=== PATIENT | female | born 1980 | race Caucasian/White ===

== ENCOUNTER 2023-12-09 14:43 | Outpatient (CLI) | payer BC, SELFPAY ==
--- NOTE | 2023-12-09 14:44 | US_ITS ---
PROCEDURE: US TRANSVAGINAL CLINICAL INDICATION: abnormal uterine bleeding COMPARISON: No exams were available for comparison FINDINGS: Transvaginal sonographic images of the pelvis were obtained. UTERUS: 8.3cm x 6.3cmx 5.4cm retroverted and retroflexed with a combined endometrial thickness of 14.4mm. The endometrium has a trilaminar appearance with an irregular basalis with increased echogenicity possibly consistent with adenomyosis. There is a 9.3 mm nabothian cyst in the cervix. LEFT OVARY: 1.0cmx 1.0x3.0cm with a volume of 1.4ml. RIGHT OVARY: 3.3cmx 2.5 cmx2.6 cm with a volume of 11ml. There is a follicle in the right ovary measuring 1.6 cm x 2.4 cm x 1.7 cm. Both ovaries are seen and appear normal. Doppler flow to both ovaries are seen. There is no fluid in the cul-de-sac. IMPRESSION: 1. Retroverted, retroflexed uterus normal in shape and size. 2. The endometrium is thickened at 14.4 mm. It has an irregular border at the basalis and has increased echogenicity along the basalis. 3. Both ovaries are seen and appear normal. The right ovary has a 2.4 cm follicle. 4. No fluid in the cul-de-sac. Dictated by: Jay Basurto MD 12/09/2023 16:16 Jay Basurto MD in [facility] 12/09/2023 16:16
== END 2023-12-09 23:59 | disposition home or self-care (01) ==
LOC: RAD 14:44
PROVIDERS: PCP Internal Medicine; Visit Provider Obstetrics & Gynecology
DX: R10.2 Pelvic and perineal pain (principal); N93.9 Abnormal uterine and vaginal bleeding, unspecified; R32 Unspecified urinary incontinence
CPT/HCPCS: 76830

== ENCOUNTER 2023-12-27 09:16 | Outpatient (CLI) | payer BC, SELFPAY ==
--- NOTE | 2023-12-27 09:17 | US_ITS ---
PROCEDURE: US TRANSVAGINAL CLINICAL INDICATION: pcos, COMPARISON: US US TRANSVAGINAL from 12/09/2023 FINDINGS: Transvaginal sonographic images of the pelvis were obtained. UTERUS: 7.9 cm x 6.0cmx 5.5cm retroverted with a combined endometrial thickness of 7.4mm. There is a small nabothian cyst in the cervix. LEFT OVARY: 2.6 cmx1.2cmx1.4cm with a volume of 2.2ml. There are numerous small follicles in the left ovary. RIGHT OVARY: 2.3cmx 1.3cmx1.5cm with a volume of 2.3ml. There are several small follicles in the right ovary, the largest measures 0.6 cm. The previously described 2.4 cm follicle has resolved. Both ovaries are seen and appear normal. Doppler flow to both ovaries are seen. There is no fluid in the cul-de-sac. IMPRESSION: 1. Retroverted uterus normal in shape and size. The endometrium is normal at 7.4 mm. 2. Both ovaries are seen and have numerous small follicles. 3. No fluid in the cul-de-sac. Dictated by: Jay Basurto MD 12/27/2023 16:33 Jay Basurto MD in [facility] 12/27/2023 16:33
== END 2023-12-27 23:59 | disposition home or self-care (01) ==
LOC: RAD 09:17
PROVIDERS: PCP Obstetrics & Gynecology; Visit Provider Obstetrics & Gynecology
DX: E28.2 Polycystic ovarian syndrome (principal)
CPT/HCPCS: 76830